=== PATIENT | female | born 1940 | race Caucasian/White ===

== ENCOUNTER 2017-04-15 11:16 | Inpatient (IN) | payer MEDICARE, OTHER ==
[~2017-04-15] VITALS: Ht 167.6 cm; Wt 80.2 kg
[2017-05-08] VITALS (10 sets, daily range): BP systolic 113–167; BP diastolic 52–75; PULSE 77–91; TEMP 98–98.7
[2017-05-08] MEDS ORDERED: PRINIVIL10 MG PO (07:05)
[2017-05-08] MEDS ORDERED: LIPITOR 10MG10 MG PO (07:05)
[2017-05-08] MEDS ORDERED: GLUCOPHAGE500 MG/TAB PO (07:06)
[2017-05-08] MEDS ORDERED: GLUCOTROL 5M5 MG/TAB PO (07:07)
[2017-05-08] MEDS ORDERED: CALCIUM CARBON650 M2 PO ×2 (07:07→07:08)
[2017-05-08] MEDS ORDERED: MASON NATURAL2000 IU PO (07:08)
[2017-05-08] MEDS ORDERED: SYNTHROID0.05 MG/TA PO (07:09)
[2017-05-09 00:26] VITALS: BP 127/65; PULSE 90; TEMP 98.7
[2017-05-09 04:00] VITALS: BP 128/54; PULSE 83; TEMP 98.2
[2017-05-09 06:40] LABS: BASO # 0.1 (0.0-0.2); BASO % 0.6 % (0.0-2.0); GRAN # 11.3 (1.4-6.5); GRAN % 74.5 % (42.2-75.2); HEMOGLOBIN 12.2 g/dl (12.5-16.0); LYMPH # 2.4 (1.2-3.4); LYMPH % 15.5 % (20.0-51.0); MEAN CELL VOLUME 90 fl (80.0-100.0); MEAN CORPUSCULAR HEMOGLOBIN 30 pg (27.0-31.0); MEAN CORPUSCULAR HGB CONC 33 g/dl (33.0-37.0); MEAN PLATELET VOLUME 9.3 fl (7.4-10.4); MONO # 1.3 (0.1-0.6); MONO % 8.7 % (1.7-9.3); PLATELET COUNT 289 K/mm3 (130-400); RED BLOOD COUNT 4.05 M/mm3 (4.10-5.30); REDCELL DISTRIBUTION WIDTH-CV 12.3 % (11.5-14.5)
[2017-05-09 06:49] LABS: CALCIUM 8.4 mg/dL (8.4-10.2); CREATININE, serum 0.74 mg/dL (0.52-1.25); POTASSIUM 3.9 mmol/L (3.4-5.0)
[2017-05-09 06:52] LABS: HEMATOCRIT 36.5 % (37.0-47.0)
[2017-05-09 07:17] VITALS: BP 128/62; PULSE 75; TEMP 98
[2017-05-09 12:08] VITALS: BP 130/70; PULSE 66; TEMP 98.3
[2017-05-09 12:16] VITALS: BP 154/55; PULSE 84; TEMP 98
[2017-05-09] MEDS ORDERED: ASPI325T6 PO (15:03)
[2017-05-09] MEDS ORDERED: ROXICODONE 55 MG/TAB PO (15:05)
[2017-05-09] MEDS ORDERED: NORCO 325 MG-7.1 TAB PO (15:06)
== END 2017-05-09 15:30 | disposition home or self-care (01) | DRG 483 ==
LOC: JCC 05-08 07:30
PROVIDERS: Family Medicine; Orthopaedic Surgery
PROC: 0RRJ00Z Replacement of Right Shoulder Joint with Reverse Ball and Socket Synthetic Substitute, Open Approach (ICD-10-PCS; principal; 2017-05-08 10:30)
DX: M19.011 Primary osteoarthritis, right shoulder (principal); I10 Essential (primary) hypertension; E11.65 Type 2 diabetes mellitus with hyperglycemia
CPT/HCPCS: 99222; 99231-AI; A4314; A4315; A9284; C1713; C1776; J0690; J1100; J2250; J2405; J2704; J2795; J3010; J7030

== ENCOUNTER → 2017-04-29 | Outpatient (CLI) | payer MEDICARE, OTHER ==
[2017-04-29 17:38] LABS: HIV 1/2 Antibodies Non-Reactive; HIV-1p24 Antigen Non-Reactive
== END ==
LOC: COL.LAB 16:38
PROVIDERS: Orthopaedic Surgery
DX: Z01.812 Encounter for preprocedural laboratory examination (principal); M19.011 Primary osteoarthritis, right shoulder